=== PATIENT | male | born 1995 | race African-American/Black ===

== ENCOUNTER 2017-07-30 21:28 | Emergency (ER) | payer BC ==
[2017-07-30 21:51] VITALS: PULSE 82; RESP 20; TEMP 98.5; O2SAT 98
--- NOTE | 2017-07-30 23:06 | C.PDOC ---
History Of Present Illness 21 year old male presents to the ED for evaluation of dry and flaky skin that he noted around on scrotum earlier today. Patient states he received oral sex around 5 days ago. Patient then scrubbed himself several times using different soaps. Patient is concerned for sexually transmitted diseases and presents to the ED for further evaluation. Patient denies fever, chills, dysuria, or penile discharge. Time Seen by Provider: 07/30/17 22:05 Chief Complaint (Nursing): Male Genitourinary History Per: Patient History/Exam Limitations: no limitations Onset/Duration Of Symptoms: Hrs Current Symptoms Are (Timing): Still Present Quality Of Discomfort: denies: "Pain" Associated Symptoms: denies: Fever, Chills, Urinary Symptoms (dysuria ) Additional History Per: Patient Past Medical History Reviewed: Historical Data, Nursing Documentation, Vital Signs Vital Signs: Last Vital Signs Temp 98.5 F 07/30/17 21:44 Pulse 82 07/30/17 23:00 Resp 20 07/30/17 23:00 BP 126/66 07/30/17 23:00 Pulse Ox 98 07/31/17 03:49 - Medical History PMH: No Chronic Diseases Surgical History: No Surg Hx Family History: States: Unknown Family Hx - Social History Hx Alcohol Use: No Hx Substance Use: No - Immunization History Hx Tetanus Toxoid Vaccination: No Hx Influenza Vaccination: No Hx Pneumococcal Vaccination: No Review Of Systems Constitutional: Negative for: Fever, Chills Genitourinary: Positive for: Other (dry and flaky skin on scrotum ). Negative for: Dysuria, Penile Discharge, Scrotal Pain, Penile Pain Physical Exam - Physical Exam Appears: Non-toxic, No Acute Distress Skin: Normal Color, Warm, Dry, Other (scrotum: dry, scaly skin. no erythema ) Male Genital: No Testicular Tenderness, No Testicular Swelling, No Scrotal Swelling Extremity: Normal ROM Neurological/Psych: Oriented x3, Normal Speech, Normal Cognition Gait: Steady ED Course And Treatment O2 Sat by Pulse Oximetry: 98 (on RA) Pulse Ox Interpretation: Normal Progress Note: On reassessment, patient is resting comfortably and showing no signs of distress. Patient is reassurred that his current symptoms are not indicative of a sexually transmitted disease. Patient will be discharged with Rx for Bacitracin ointment and is adivsed to apply the cream to the affected area as prescribed. Patient is advised to follow up with urologist within 2-3 days and/or return to the ED if symptoms worsen. Reassessment Condition: Unchanged Disposition - Disposition Referrals: Hugh Vela MD [Staff Provider] - Disposition: HOME/ ROUTINE Disposition Time: 23:04 Condition: STABLE Additional Instructions: Follow up with Urologist within 2-3 days. Return to Ed if feel worse. 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 - Scribe Statement The provider has reviewed the documentation as recorded by the Scribe (Denice Russo) All medical record entries made by the Scribe were at my direction and personally dictated by me. I have reviewed the chart and agree that the record accurately reflects my personal performance of the history, physical exam, medical decision making, and the department course for this patient. I have also personally directed, reviewed, and agree with the discharge instructions and disposition.
[2017-07-31 00:12] VITALS: BP 126/66
== END 2017-07-31 00:09 | disposition home or self-care (01) ==
LOC: C.ER 21:28
DX: L30.9 Dermatitis, unspecified (principal)